=== PATIENT | male | born 1975 | race Caucasian/White ===

== ENCOUNTER → 2024-03-22 11:41 | Outpatient (REF) | payer BC, SELFPAY | LOC: PAVMRI 11:41 | PROVIDERS: ATTENDING PHYSICIAN Internal Medicine Hematology | DX: C96.6 Unifocal Langerhans-cell histiocytosis (principal) | CPT/HCPCS: 70553; A9575 ==

== ENCOUNTER → 2025-06-02 11:54 | Outpatient (REF) | payer BC, SELFPAY | LOC: PAVMRI 11:54 | PROVIDERS: ATTENDING PHYSICIAN Nurse Practitioner Primary Care | DX: C96.6 Unifocal Langerhans-cell histiocytosis (principal) | CPT/HCPCS: 70553; A9575 ==